=== PATIENT | male | born 1985 | race Caucasian/White ===

== ENCOUNTER 2019-08-17 11:46 | Emergency (ER) | payer OTHER ==
[2019-08-17 12:12] VITALS: BP 116/80
[2019-08-17 13:44] LABS: Influenza A Molecular Negative (Negative); Influenza B Molecular Negative (Negative)
--- NOTE | 2019-08-17 14:28 | UC ---
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 Increased sinus/ frontal pressure. no fever. No recent ABX. symptoms have been worsening over past few days. - History of Current Complaint Chief Complaint: UCGeneralIllness Stated Complaint: COUGH,BODY ACHES Time Seen by Provider: 08/17/19 13:31 Hx Obtained From: Patient Onset/Duration: Sudden Onset, Lasting Weeks - 1 Severity Currently: Moderate Severity Initially: Moderate Pain Intensity: 3 Pain Scale Used: 0-10 Numeric Associated Signs & Symptoms: Positive: F/C, Cough, Sore Throat, Nasal Congestion , Headache. Negative: Vomiting, Diarrhea Related Hx: Possible Flu/Infectious Exposure - Allergy/Home Medications Allergies/Adverse Reactions: Allergies Allergy/AdvReac Type Severity Reaction Status Date / Time No Known Allergies Allergy Verified 08/17/19 12:12 Home Medications: Home Medications Amoxicillin/Clavulanate TAB* [Augmentin TAB 875*] 875 mg PO BID #20 tab [Rx] FLUoxetine CAP* [Prozac CAP*] 60 mg PO DAILY 08/17/19 [History Confirmed ] PMH/Surg Hx/FS Hx/Imm Hx Previously Healthy: Yes - Surgical History Surgical History: None - Family History Known Family History: Positive: Non-Contributory - Social History Occupation: Employed Full-time Alcohol Use: None Substance Use Type: None Smoking Status (MU): Never Smoked Tobacco Review of Systems All Other Systems Reviewed And Are Negative: Yes Constitutional: Positive: Chills, Fatigue ENT: Positive: Sore Throat, Ear Ache, Nasal Discharge, Sinus Congestion, Sinus Pain/Tenderness Respiratory: Positive: Cough. Negative: Shortness Of Breath Cardiovascular: Negative: Palpitations, Chest Pain Musculoskeletal: Positive: Myalgia Neurological/Mental Status: Positive: Headache Psychological: Positive: Negative Is Patient Immunocompromised?: No Physical Exam Triage Information Reviewed: Yes Appearance: No Pain Distress, Well-Nourished, Ill-Appearing - mild Vital Signs: Initial Vital Signs Temp 98.4 F 08/17/19 12:10 Pulse 82 08/17/19 12:10 Resp 17 08/17/19 12:10 BP 116/80 03/09/20 12:10 Pulse Ox 98 08/17/19 12:10 Vital Signs Reviewed: Yes Eyes: Positive: Conjunctiva Clear ENT: Positive: Pharynx normal, TMs normal, Sinus tenderness - frontal/ submax b/ l. Negative: Pharyngeal erythema, TM bulging, TM dull, TM red, Tonsillar swelling, Tonsillar exudate, Uvula midline Neck: Positive: Supple, No Lymphadenopathy, Tenderness @ - submand. Negative: Nuchal Rigidity, Enlarged Nodes @ Respiratory: Positive: Chest non-tender, Lungs clear, Normal breath sounds, No respiratory distress, No accessory muscle use. Negative: Respiratory distress, Decreased breath sounds, Crackles, Rhonchi, Stridor, Wheezing Cardiovascular: Positive: RRR, No Murmur Neurological Exam: Normal Neurological: Positive: Alert Flu Course/Dx - Course Course Of Treatment: Sinusitis: - Increase fluid intake - Humidifier at night to help with coughing - Good hygiene, hand washing to prevent spread - Over the counter medications for symptoms - Motrin/ Tylenol as needed for pain, fever - Antibiotics as directed - Work note given - Differential Dx/Diagnosis Differential Diagnosis/HQI/PQRI: Influenza, RSV, Upper Respiratory Infection Provider Diagnosis: Sinusitis Discharge ED - Sign-Out/Discharge Documenting (check all that apply): Patient Departure All imaging exams completed and their final reports reviewed: No Studies - Discharge Plan Condition: Fair Disposition: HOME Prescriptions: Amoxicillin/Clavulanate TAB* [Augmentin TAB 875*] 875 mg PO BID #20 tab Patient Education Materials: Sinusitis (ED) Referrals: Gregg Lawton, BILL[employer]ER [Primary Care Provider] - Additional Instructions: - Increase fluid intake - Humidifier at night to help with coughing - Good hygiene, hand washing to prevent spread - Over the counter medications for symptoms - Motrin/ Tylenol as needed for pain, fever - Antibiotics as directed - Work note given - Billing Disposition and Condition Condition: FAIR Disposition: Home
== END 2019-08-17 13:52 | disposition home or self-care (01) ==
LOC: UCEAST 11:46
DX: J32.9 Chronic sinusitis, unspecified (principal); J02.9 Acute pharyngitis, unspecified; R53.83 Other fatigue; R05 Cough
CPT/HCPCS: 99212; G0463

== ENCOUNTER 2019-08-23 12:16 | Emergency (ER) | payer OTHER ==
--- NOTE | 2019-08-23 13:58 | ED ---
HPI Febrile Illness - HPI Summary HPI Summary: 34-year-old white male presents to urgent care requests testing for COVID19 testing as his pt were both exposed the first patient who tested positive positive in [facility] 2 days ago. Patient states mild fever chills cough but denies shortness of breath or recent travel. 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 - History of Current Complaint Time Seen by Provider: 08/23/19 13:50 Hx Obtained From: Patient Hx From Patient Unobtainable Due To: Other Timing: Constant Initial Severity: Moderate Current Severity: Moderate - Allergy/Home Medications Allergies/Adverse Reactions: Allergies Allergy/AdvReac Type Severity Reaction Status Date / Time No Known Allergies Allergy Verified 08/23/19 14:25 Home Medications: Home Medications Amoxicillin/Clavulanate TAB* [Augmentin TAB 875*] 875 mg PO BID #20 tab [Rx Confirmed 08/23/19] FLUoxetine CAP* [Prozac CAP*] 60 mg PO DAILY 08/17/19 [History Confirmed ] Acetaminophen [Tylenol] 650 mg PO ONCE PRN 08/23/19 [History Confirmed 08/23/19] Naproxen [Naproxen 500 mg tab] 500 mg PO BID 10 Days #20 tablet 08/23/19 [Rx] PMH/Surg Hx/FS Hx/Imm Hx Previously Healthy: Yes Infectious Disease History: Denies: Traveled Outside the [place] in Last 30 Days - Family History Known Family History: Positive: Non-Contributory - Social History Occupation: Employed Full-time Alcohol Use: None Substance Use Type: Reports: None Smoking Status (MU): Never Smoked Tobacco Review of Systems Positive: Fever, Chills, Fatigue Eyes: Negative Positive: Sore Throat Cardiovascular: Negative Respiratory: Negative Gastrointestinal: Negative Genitourinary: Negative Positive: Myalgia Skin: Negative Neurological/Mental Status: Negative Psychological: Normal All Other Systems Reviewed And Are Negative: Yes Physical Exam - Summary Physical Exam Summary: Vital Signs Reviewed: Yes Gen: NAD Eye Exam: Normal Eyes: Positive: Conjunctiva Clear ENT: Normal ENT inspection Neck: Supple Respiratory: Lungs clear, Normal breath sounds. Negative: Crackles, Rhonchi, Stridor, Wheezing Cardiovascular Exam: Normal, RRR, S1, S2 Abdomen: NT/ND Musculoskeletal Exam: Normal Neurological Exam: Normal Psychological Exam: Normal Skin Exam: Normal Course/Dx - Diagnoses Provider Diagnoses: Exposure to 2019 novel coronavirus Discharge ED - Sign-Out/Discharge Documenting (check all that apply): Patient Departure All imaging exams completed and their final reports reviewed: No Studies - Discharge Plan Condition: Stable Disposition: HOME Prescriptions: Naproxen [Naproxen 500 mg tab] 500 mg PO BID 10 Days #20 tablet Patient Education Materials: Viral Syndrome (ED) Referrals: Gregg Lawton NP [Primary Care Provider] - - Billing Disposition and Condition Condition: STABLE Disposition: Home
[2019-08-23 14:25] VITALS: BP 128/89
[2019-08-23 14:31] LABS: Influenza A Molecular Negative (Negative); Influenza B Molecular Negative (Negative)
== END 2019-08-23 15:03 | disposition home or self-care (01) ==
LOC: UCEAST 12:16
DX: R50.9 Fever, unspecified (principal); J02.9 Acute pharyngitis, unspecified; R53.83 Other fatigue; M79.10 Myalgia, unspecified site
CPT/HCPCS: 87651; 99213; G0463